=== PATIENT | female | born 1985 | race Caucasian/White ===

== ENCOUNTER → 2017-04-03 | Outpatient (CLI) | payer OTHER ==
[~2017-04-03] MED LIST: ACYC200; IBUP800 PO
== END ==
LOC: LAB 16:27
DX: N89.8 Other specified noninflammatory disorders of vagina (principal)
CPT/HCPCS: 87070; 87205

== ENCOUNTER → 2019-04-21 | Outpatient (CLI) | payer OTHER ==
[2019-04-21 15:59] LABS: BASOPHILS ABSOLUTE AUTO 0.06 K/mm3 (0.00-0.23); BASOPHILS PERCENT AUTO 1 % (0-2); EOSINOPHILS ABSOLUTE AUTO 0.59 K/mm3 (0.00-0.68); EOSINOPHILS PERCENT AUTO 10 % (0-6); Hematocrit 40.2 % (33.0-51.0); Hemoglobin 13.2 g/dL (11.5-16.0); IMMATURE GRAN ABSOLUTE AUTO 0.02 K/mm3 (0.00-0.10); IMMATURE GRAN PERCENT AUTO 0 % (0-1); LYMPHOCYTES ABSOLUTE AUTO 1.66 K/mm3 (0.84-5.20); LYMPHOCYTES PERCENT AUTO 28 % (21-46); MONOCYTES ABSOLUTE AUTO 0.44 K/mm3 (0.16-1.47); MONOCYTES PERCENT AUTO 8 % (4-13); Mean Corpuscular HGB 29.1 pg (26.0-34.0); Mean Corpuscular HGB Conc 32.8 g/dL (31.5-36.5); Mean Corpuscular Volume 89 fL (80-100); Mean Platelet Volume 9.3 fL (9.1-12.4); NEUTROPHILS ABSOLUTE AUTO 3.13 K/mm3 (1.96-9.15); NEUTROPHILS PERCENT AUTO 53 % (41-73); Platelet Count 280 K/mm3 (150-400); RDW Coefficient Variation 12.5 % (11.7-14.2); RDW Standard Deviation 40.7 fL (35.1-46.3); Red Blood Cell Count 4.54 M/mm3 (3.80-5.20)
[2019-04-21 16:25] LABS: Alanine Aminotransfer (ALT/SGP 21 U/L (12-78); Albumin, Blood 4.5 g/dL (3.4-5.0); Albumin/Globulin Ratio 1.4 (0.8-1.8); Alk Phos 69 U/L (40-126); Anion Gap 10 mmol/L (6-16); Aspartate Aminotrans (AST/SGOT 18 U/L (12-37); Bilirubin, Total 0.5 mg/dL (0.1-1.0); Blood Urea Nitrogen 10 mg/dL (8-24); Bun/Creatinine Ratio 14.9 (12.0-20.0); CO2, Blood 27 mmol/L (21-32); Calcium, Blood 9.5 mg/dL (8.5-10.1); Chloride, Blood 103 mmol/L (98-108); Creatinine, Blood 0.67 mg/dL (0.40-1.00); Globulin, Blood 3.2 g/dL (2.2-4.0); Glomerular Filtration Rate >60 (60-); Glucose, Blood 87 mg/dL (70-99); Potassium, Blood 4.1 mmol/L (3.5-5.5); Sodium, Blood 140 mmol/L (136-145); Total Protein, Blood 7.7 g/dL (6.4-8.2)
== END | disposition home or self-care (01) ==
LOC: LAB SHORT 15:48 → LAB EV 15:48
PROVIDERS: Family Medicine
DX: R10.9 Unspecified abdominal pain (principal)
CPT/HCPCS: 80053; 83690; 85025

== ENCOUNTER 2019-04-27 17:12 | Emergency (ER) | payer OTHER ==
[~2019-04-27] VITALS: Ht 162.6 cm; Wt 58.5 kg
[2019-04-27 17:34] LABS: Source, Urine Clean Catch
[2019-04-27 17:44] LABS: Appearance, Urine Clear (Clear); Bilirubin, Urine Neg (Neg); Blood, Urine 2+ (Neg); Color, Urine Yellow (P-Yellow); Glucose Qualitative, Urine Neg (Neg); Ketones, Urine Neg (Neg); Leukocyte Esterase, Urine Neg (Neg); Nitrite, Urine Neg (Neg); Protein, Urine Neg (Neg); Urobilinogen, Urine NORM (Normal)
[2019-04-27 17:55] LABS: Bacteria Few /hpf; Squamous Epithelial Cells Few /hpf (Few); White Blood Cells, Urine 0-2 /hpf (0-5)
[2019-04-27 18:34] LABS: BASOPHILS ABSOLUTE AUTO 0.06 K/mm3 (0.00-0.23); BASOPHILS PERCENT AUTO 1 % (0-2); EOSINOPHILS ABSOLUTE AUTO 0.64 K/mm3 (0.00-0.68); EOSINOPHILS PERCENT AUTO 8 % (0-6); Hematocrit 39.2 % (33.0-51.0); IMMATURE GRAN ABSOLUTE AUTO 0.01 K/mm3 (0.00-0.10); IMMATURE GRAN PERCENT AUTO 0 % (0-1); LYMPHOCYTES ABSOLUTE AUTO 2.23 K/mm3 (0.84-5.20); LYMPHOCYTES PERCENT AUTO 27 % (21-46); MONOCYTES ABSOLUTE AUTO 0.53 K/mm3 (0.16-1.47); MONOCYTES PERCENT AUTO 7 % (4-13); Mean Corpuscular HGB 29.3 pg (26.0-34.0); Mean Corpuscular HGB Conc 33.2 g/dL (31.5-36.5); Mean Corpuscular Volume 89 fL (80-100); Mean Platelet Volume 9.2 fL (9.1-12.4); NEUTROPHILS ABSOLUTE AUTO 4.68 K/mm3 (1.96-9.15); NEUTROPHILS PERCENT AUTO 57 % (41-73); Platelet Count 277 K/mm3 (150-400); RDW Coefficient Variation 12.2 % (11.7-14.2); RDW Standard Deviation 40.4 fL (35.1-46.3); Red Blood Cell Count 4.43 M/mm3 (3.80-5.20); White Blood Cell Count 8.15 K/mm3 (4.00-11.30)
[2019-04-27 18:53] LABS: Alanine Aminotransfer (ALT/SGP 20 U/L (12-78); Albumin/Globulin Ratio 1.1 (0.8-1.8); Alk Phos 64 U/L (50-136); Anion Gap 3 mmol/L (6-16); Aspartate Aminotrans (AST/SGOT 16 U/L (12-37); Bilirubin, Total 0.5 mg/dL (0.1-1.0); Blood Urea Nitrogen 10 mg/dL (8-24); Bun/Creatinine Ratio 14.7 (12.0-20.0); CO2, Blood 28 mmol/L (21-32); Chloride, Blood 107 mmol/L (98-108); Creatinine, Blood 0.68 mg/dL (0.40-1.00); Globulin, Blood 3.6 g/dL (2.2-4.0); Glomerular Filtration Rate >60 (60-); Glucose, Blood 91 mg/dL (70-99); Potassium, Blood 3.6 mmol/L (3.5-5.5); Sodium, Blood 138 mmol/L (136-145); Total Protein, Blood 7.6 g/dL (6.4-8.2)
[2019-04-27] MEDS ORDERED: PANT20 PO (20:23)
[2019-04-27] MEDS ORDERED: Norco 10-325 T1 EACH PO (21:08)
[2019-04-27] MEDS ORDERED: BENTYL10 MG/1 ML PO (21:31)
== END 2019-04-27 21:47 | disposition home or self-care (01) ==
LOC: ER 17:12
PROVIDERS: Physician Assistant
DX: R10.13 Epigastric pain (principal)
CPT/HCPCS: 36415; 74018; 76705; 80053; 81001; 81025; 83690; 85025; 96361; 96374; 96375; 96376; 99284-25; J1885; J2405; J3010; J7030

== ENCOUNTER 2019-05-05 08:51 | Day surgery (SDC) | payer OTHER ==
[~2019-05-05] VITALS: Ht 162.6 cm; Wt 56.6 kg
[~2019-05-05 08:51] MED LIST changes: +BENTYL10 MG/1 ML PO; +Norco 10-325 T1 EACH PO; +PANT20 PO
[2019-05-05] MEDS ORDERED: ONDA4 (09:44)
--- NOTE | 2019-05-05 10:55 | NUR ---
05/05/19 1055 Genevieve Roach INJECTED 2ML NORMAL SALINE.
== END 2019-05-05 11:27 | disposition home or self-care (01) ==
LOC: ORSCSDS 08:51
PROVIDERS: Internal Medicine Gastroenterology
PROC: 0DB98ZX Excision of Duodenum, Via Natural or Artificial Opening Endoscopic, Diagnostic (ICD-10-PCS; principal; 2019-05-05 10:30)
PROC: 0DBE8ZX Excision of Large Intestine, Via Natural or Artificial Opening Endoscopic, Diagnostic (ICD-10-PCS; principal; 2019-05-05 10:30)
PROC: 0DBP8ZX Excision of Rectum, Via Natural or Artificial Opening Endoscopic, Diagnostic (ICD-10-PCS; principal; 2019-05-05 10:30)
PROC: 0DB78ZX Excision of Stomach, Pylorus, Via Natural or Artificial Opening Endoscopic, Diagnostic (ICD-10-PCS; principal; 2019-05-05 10:30)
DX: R19.7 Diarrhea, unspecified (principal); R10.13 Epigastric pain; K52.832 Lymphocytic colitis; D12.8 Benign neoplasm of rectum; Z79.899 Other long term (current) drug therapy
CPT/HCPCS: 88305; 88342; J2250; J2704; J7120

== ENCOUNTER → 2021-04-18 | Outpatient (CLI) | payer OTHER ==
[~2021-04-18] MED LIST changes: +ONDA4
[2021-04-18 13:57] LABS: Bilirubin, Urine Neg (Neg); Blood, Urine Neg (Neg); Glucose Qualitative, Urine Neg (Neg); Ketones, Urine Neg (Neg); Leukocyte Esterase, Urine Neg (Neg); Nitrite, Urine Neg (Neg); Protein, Urine Neg (Neg); Specific Gravity, Urine 1.015 (1.003-1.022); Urobilinogen, Urine NORM (Normal)
[2021-04-18 14:04] LABS: Appearance, Urine Clear (Clear); Color, Urine Pale Yellow (P-Yellow)
[2021-04-18 14:09] LABS: BASOPHILS ABSOLUTE AUTO 0.04 K/mm3 (0.00-0.23); BASOPHILS PERCENT AUTO 1 % (0-2); EOSINOPHILS ABSOLUTE AUTO 0.03 K/mm3 (0.00-0.68); EOSINOPHILS PERCENT AUTO 1 % (0-6); Hematocrit 41.1 % (33.0-51.0); Hemoglobin 13.4 g/dL (11.5-16.0); IMMATURE GRAN ABSOLUTE AUTO 0.01 K/mm3 (0.00-0.10); IMMATURE GRAN PERCENT AUTO 0 % (0-1); LYMPHOCYTES ABSOLUTE AUTO 1.52 K/mm3 (0.84-5.20); LYMPHOCYTES PERCENT AUTO 32 % (21-46); MONOCYTES ABSOLUTE AUTO 0.46 K/mm3 (0.16-1.47); MONOCYTES PERCENT AUTO 10 % (4-13); Mean Corpuscular HGB 28.7 pg (26.0-34.0); Mean Corpuscular HGB Conc 32.6 g/dL (31.5-36.5); Mean Corpuscular Volume 88 fL (80-100); Mean Platelet Volume 9.6 fL (9.1-12.4); NEUTROPHILS ABSOLUTE AUTO 2.67 K/mm3 (1.96-9.15); NEUTROPHILS PERCENT AUTO 57 % (41-73); Platelet Count 291 K/mm3 (150-400); RDW Coefficient Variation 12.6 % (11.7-14.2); RDW Standard Deviation 40.8 fL (35.1-46.3); Red Blood Cell Count 4.67 M/mm3 (3.80-5.20); White Blood Cell Count 4.73 K/mm3 (4.00-11.30)
[2021-04-19 10:08] LABS: HBSAG SCREEN Negative (Negative); HIV AB/P24 AG SCREEN Non Reactive (Non Reactive)
[2021-04-20 02:09] LABS: CHLAMYDIA TRACHOMATIS, NAA Negative (Negative)
== END ==
LOC: LAB SHORT 12:33
PROVIDERS: Registered Nurse Community Health
DX: Z34.91 Encounter for supervision of normal pregnancy, unspecified, first trimester (principal)
CPT/HCPCS: 80055; 81003; 84443; 87086; 87389; 87491; 87591

== ENCOUNTER → 2021-09-22 | Outpatient (CLI) | payer OTHER ==
[2021-09-22 15:36] LABS: Hematocrit 34.9 % (33.0-51.0); Hemoglobin 11.3 g/dL (11.5-16.0)
== END ==
LOC: LAB SHORT 13:37 → LAB 13:37
PROVIDERS: Registered Nurse Community Health
DX: Z34.91 Encounter for supervision of normal pregnancy, unspecified, first trimester (principal)
CPT/HCPCS: 82950; 85014; 85018

== ENCOUNTER → 2021-11-17 | Outpatient (CLI) | payer OTHER | END | disposition home or self-care (01) | LOC: LAB 13:56 → LAB SHORT 13:56 | DX: Z34.92 Encounter for supervision of normal pregnancy, unspecified, second trimester (principal) | CPT/HCPCS: 87081; 87150 ==

== ENCOUNTER 2021-12-05 04:12 | Inpatient (IN) | payer OTHER ==
[~2021-12-05] VITALS: Ht 165.1 cm; Wt 74.5 kg
[2021-12-05 05:19] LABS: BASOPHILS ABSOLUTE AUTO 0.06 K/mm3 (0.00-0.23); BASOPHILS PERCENT AUTO 1 % (0-2); EOSINOPHILS ABSOLUTE AUTO 0.14 K/mm3 (0.00-0.68); EOSINOPHILS PERCENT AUTO 2 % (0-6); Hemoglobin 11.4 g/dL (11.5-16.0); IMMATURE GRAN ABSOLUTE AUTO 0.07 K/mm3 (0.00-0.10); IMMATURE GRAN PERCENT AUTO 1 % (0-1); LYMPHOCYTES ABSOLUTE AUTO 2.18 K/mm3 (0.84-5.20); LYMPHOCYTES PERCENT AUTO 24 % (21-46); MONOCYTES ABSOLUTE AUTO 0.97 K/mm3 (0.16-1.47); MONOCYTES PERCENT AUTO 11 % (4-13); Mean Corpuscular HGB 28.6 pg (26.0-34.0); Mean Corpuscular HGB Conc 32.6 g/dL (31.5-36.5); Mean Corpuscular Volume 88 fL (80-100); Mean Platelet Volume 9.5 fL (9.1-12.4); NEUTROPHILS ABSOLUTE AUTO 5.67 K/mm3 (1.96-9.15); NEUTROPHILS PERCENT AUTO 62 % (41-73); Platelet Count 246 K/mm3 (150-400); RDW Coefficient Variation 12.7 % (11.7-14.2); RDW Standard Deviation 40.8 fL (35.1-46.3); Red Blood Cell Count 3.99 M/mm3 (3.80-5.20); White Blood Cell Count 9.09 K/mm3 (4.00-11.30)
[2021-12-05] MEDS ORDERED: BUSP5 PO (05:28)
[2021-12-05] MEDS ORDERED: PRENATAL TABLE1 EAC2 PO (05:28)
[2021-12-06 06:09] LABS: Hematocrit 33.7 % (33.0-51.0); Mean Corpuscular HGB 28.6 pg (26.0-34.0); Mean Corpuscular HGB Conc 32.6 g/dL (31.5-36.5); Mean Corpuscular Volume 88 fL (80-100); Mean Platelet Volume 9.5 fL (9.1-12.4); Platelet Count 209 K/mm3 (150-400); RDW Standard Deviation 41.1 fL (35.1-46.3); Red Blood Cell Count 3.85 M/mm3 (3.80-5.20); White Blood Cell Count 12.85 K/mm3 (4.00-11.30)
[2021-12-06] MEDS ORDERED: IBU800 M1 PO (16:02)
--- NOTE | 2021-12-06 16:05 | NUR ---
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 Denies questions at this time.
--- NOTE | 2021-12-06 17:15 | NUR ---
No acute changes t/o shift. ID bands matched w/nb. Pt denies additional questions/concerns at this time. Verbalized understanding of follow up and appointments. Pt d/c'd home ambulatory to care of .
== END 2021-12-06 17:15 | disposition home or self-care (01) | DRG 807 ==
LOC: OBS 04:12 → BC 04:16 → OBS 04:24 → BC 04:26
PROVIDERS: ADMIT Registered Nurse Community Health
PROC: 10E0XZZ Delivery of Products of Conception, External Approach (ICD-10-PCS; principal; 2021-12-05)
PROC: 10907ZC Drainage of Amniotic Fluid, Therapeutic from Products of Conception, Via Natural or Artificial Opening (ICD-10-PCS; 2021-12-05)
PROC: 3E0R3BZ Introduction of Anesthetic Agent into Spinal Canal, Percutaneous Approach (ICD-10-PCS; 2021-12-05)
PROC: 00HU33Z Insertion of Infusion Device into Spinal Canal, Percutaneous Approach (ICD-10-PCS; 2021-12-05)
PROC: 0HQ9XZZ Repair Perineum Skin, External Approach (ICD-10-PCS; 2021-12-05)
DX: O69.1XX0 Labor and delivery complicated by cord around neck, with compression, not applicable or unspecified (principal); Z37.0 Single live birth; O70.0 First degree perineal laceration during delivery; Z79.899 Other long term (current) drug therapy; Z79.2 Long term (current) use of antibiotics; Z98.890 Other specified postprocedural states; Z87.19 Personal history of other diseases of the digestive system; Z3A.39 39 weeks gestation of pregnancy
CPT/HCPCS: 36415; 51702; 85025; 85027; 86850; 86900; 86901; A9270; J1885; J2001; J2405; J2590; J3010; J7120

== ENCOUNTER 2022-02-15 12:36 | Day surgery (SDC) | payer OTHER ==
[~2022-02-15] VITALS: Ht 162.6 cm; Wt 143.8 kg
[~2022-02-15 12:36] MED LIST changes: +BUSP5 PO; +IBU800 M1 PO; +PRENATAL TABLE1 EAC2 PO
== END 2022-02-15 15:35 | disposition home or self-care (01) ==
LOC: ORSCSDS 12:36
PROVIDERS: Internal Medicine Gastroenterology
PROC: 0DBE8ZX Excision of Large Intestine, Via Natural or Artificial Opening Endoscopic, Diagnostic (ICD-10-PCS; principal; 2022-02-15 14:45)
DX: K52.832 Lymphocytic colitis (principal); Z86.010 Personal history of colon polyps; Z80.0 Family history of malignant neoplasm of digestive organs; K60.2 Anal fissure, unspecified; Z79.899 Other long term (current) drug therapy
CPT/HCPCS: 88305; J2250; J2704; J7120